=== PATIENT | female | born 1950 | race Caucasian/White ===

== ENCOUNTER → 2017-01-02 | Outpatient (CLI) | payer MEDICARE, MEDICAID ==
[~2017-01-02] MED LIST: AMIT150T PO; BACL10TA PO; CLON.5 PO; FLUT1INH INH; GABA400C5 PO; HYDR-3583 PO; OMEP20TA PO; XARE20TA PO; [UNRECOGNIZED DRUG - CODE] PO
--- NOTE | 2017-01-02 12:10 | RADRPT ---
EXAM DATE/TIME: 01/02/2017 11:05 [place] COMPARISON: No previous studies available for comparison. INDICATIONS: Dysphagia FLUORO TIME: 1.1 minutes IMAGE COUNT: 7 CONTRAST: 1. Liquid E-Z Paque Barium Sulfate (60% w/v, 41% w.w) MEDICAL HISTORY: Gastroesophageal reflux disease. SURGICAL HISTORY: 2 anterior cervical spine surgeries ENCOUNTER: Initial ACUITY: 4 - 6 months PAIN SCORE: 0/10 LOCATION: Bilateral neck FINDINGS: Barium transits the esophagus without obstruction or stricture. There is mild gastroesophageal reflu x. There is no esophageal mass noted. No significant hiatal hernia is noted. If there is clinical concern for swallowing abnormality modified barium swallow would be more sensitive in this patient. CONCLUSION: 1. Mild gastroesophageal reflux. 2. No evidence of obstruction or focal lesion within the esophagus. 3. If there is clinical concern for swallowing abnormality modified barium swallow may be helpful fo r further evaluation. Calvin Unger MD on January 02, 2017 at 11:38 Board Certified Radiologist. This report was verified electronically.
== END ==
LOC: HRAD 10:35
PROVIDERS: ATTEND Family Medicine
DX: R13.10 Dysphagia, unspecified (principal)
CPT/HCPCS: 74230; 99213; G0463